=== PATIENT | female | born 2000 | race Two or more races ===

== ENCOUNTER 2023-08-19 14:15 | Inpatient (IN) | payer OTHER ==
[~2023-08-19] VITALS: Ht 177.8 cm; Wt 113.4 kg
[2023-08-23] MEDS ORDERED: AMPICILLIN SODIUM 2,000 MG VIAL ONE (10:47)
[2023-08-23] MEDS ORDERED: PRENATABS RX T1 EACH PO (10:51)
[2023-08-23] MEDS ORDERED: AMPICILLIN SODIUM 2,000 MG VIAL IV ONE (11:00)
[2023-08-23] MEDS ORDERED: RINGERS SOLUTION,LACTATED 1,000 ML IV SCH (11:00)
[2023-08-23 11:43] LABS: HEMATOCRIT 36.3 % (36.0-45.00); HEMOGLOBIN 12.4 g/dL (12.0-15.00); MEAN CELL VOLUME 85.6 fL (80.00-100.00); MEAN CORPUSCULAR HEMOGLOBIN 29.3 pg (27.00-32.0); MEAN CORPUSCULAR HGB CONC 34.2 g/dl (32.0-36.0); PLATELET COUNT 253 K/uL (150-450); RED BLOOD COUNT 4.24 M/uL (4.00-6.00); RED CELL DISTRIBUTION WIDTH 14.7 % (11.5-14.5)
[2023-08-23 11:46] LABS: PH,URINE 5.5 (5.0-8.0); URINE APPEARANCE Turbid; URINE BILIRRUBIN Negative (NEGATIVE); URINE BLOOD Large; URINE COLOR Yellow; URINE GLUCOSE Negative (NEGATIVE); URINE LEUKOCYTE Large; URINE NITRATE Negative; URINE PROTEIN 30 (NEGATIVE); URINE UROBILINOGEN 0.2 E.U./dl
[2023-08-23 12:01] LABS: URINE RBC 36.2 uL (0.0-20.8); URINE WBC 3231.2 uL (0.0-23.2)
[2023-08-23] MEDS ORDERED: ERYTHROMYCIN BASE 1 GM TUBE OP ONE ×2 (12:12→18:30)
[2023-08-23] MEDS ORDERED: CHLORHEXIDINE GLUCONATE 120 ML BOTTLE TOP ONE ×2 (12:12→18:30)
[2023-08-23] MEDS ORDERED: OXYTOCIN 20 UNITS/1000ML RL PIGGYBAG IV ONE ×2 (12:12→18:30)
[2023-08-23 12:16] LABS: FIBRINOGEN 447 mg/dL (187.0-446.0); INR < 0.93; PARTIAL THROMBOPLASTIN TIME 28.5 SECONDS (22.0-34.0); PROTHROMBIN TIME 9.3 SECONDS (9.0-11.5)
[2023-08-23 12:18] LABS: URINE BACTERIA > 9821.5 uL (0.0-1933); URINE EPITHELIAL CELLS > 201.7 uL (0.0-38.8)
[2023-08-23 12:19] LABS: URINE CRYSTALS FEW /HPF
[2023-08-23 12:20] LABS: URINE YEAST MODERATE /hpf
[2023-08-23 12:37] LABS: ALBUMIN 3.2 gm/dL (3.4-5.0); BILIRUBIN TOTAL 0.3 mg/dL (0.3-1.2); CALCIUM 9.3 mg/dL (8.5-10.1); CREATININE SERUM 0.71 mg/dL (0.55-1.02); GFR 103.91; GLOBULINA 3.5 G/DL (2.4-3.5); POTASSIUM 4.33 mEq/L (3.5-5.1); TOTAL PROTEIN 6.7 gm/dL (6.4-8.2)
[2023-08-23] MEDS ORDERED: OXYTOCIN 20 UNITS/500ML RL PIGGYBAG IV ONE (14:01)
[2023-08-23] MEDS ORDERED: OXYTOCIN 500 ML IV SCH (14:30)
[2023-08-23] MEDS ORDERED: PROMETHAZINE HCL 25 MG/ML AMPUL ONE (15:50)
[2023-08-23] MEDS ORDERED: MEPERIDINE HCL/PF 50 MG/ML VIAL IV STA (15:52)
[2023-08-23] MEDS ORDERED: PROMETHAZINE HCL 25 MG/ML AMPUL IV STA (15:52)
[2023-08-23] MEDS ORDERED: AMPICILLIN SODIUM 1,000 MG VIAL IV SCH (16:00)
[2023-08-23] MEDS ORDERED: NALOXONE HCL 0.4 MG/ML AMPUL ONE (16:51)
[2023-08-23] MEDS ORDERED: ACETAMINOPHEN 325 MG TABLET PO PRN (18:30)
[2023-08-23] MEDS ORDERED: OxyCODONE HCL/APAP UD (PERCOCET) PO PRN (18:30)
[2023-08-23 22:01] LABS: HEMATOCRIT 39.3 % (36.0-45.00); HEMOGLOBIN 13.3 g/dL (12.0-15.00); MEAN CELL VOLUME 87.3 fL (80.00-100.00); MEAN CORPUSCULAR HEMOGLOBIN 29.5 pg (27.00-32.0); MEAN CORPUSCULAR HGB CONC 33.8 g/dl (32.0-36.0); PLATELET COUNT 288 K/uL (150-450); RED BLOOD COUNT 4.49 M/uL (4.00-6.00); RED CELL DISTRIBUTION WIDTH 14.6 % (11.5-14.5)
[2023-08-24] MEDS ORDERED: HYDROCORTISONE 2.5% 30 GM TUBE RECTAL SCH (09:00)
[2023-08-24] MEDS ORDERED: BENZOCAINE/MENTHOL 90 ML BOTTLE TOP SCH (09:00)
== END 2023-08-25 13:12 | disposition home or self-care (01) | DRG 807 ==
LOC: OB/GYN 08-23 10:40 → LDR 08-23 10:40 → OB/GYN 08-23 19:39
PROVIDERS: ADMIT Specialist; ATTEND Specialist
PROC: 10E0XZZ Delivery of Products of Conception, External Approach (ICD-10-PCS; principal; 2023-08-23)
PROC: 4A1HXCZ Monitoring of Products of Conception, Cardiac Rate, External Approach (ICD-10-PCS; 2023-08-23)
DX: O99.824 Streptococcus B carrier state complicating childbirth (principal); Z37.0 Single live birth; Z3A.39 39 weeks gestation of pregnancy; Z20.822 Contact with and (suspected) exposure to COVID-19

== ENCOUNTER 2025-02-02 21:50 | Outpatient (CLI) | payer OTHER ==
[~2025-02-02] VITALS: Ht 177.8 cm; Wt 121.1 kg
[2025-02-02 21:42] VITALS: BP 101/66
[~2025-02-02 21:50] MED LIST: PRENATABS RX T1 EACH PO
[2025-02-02] MEDS ORDERED: RINGERS SOLUTION,LACTATED 1,000 ML IV SCH (22:00)
[2025-02-02 23:14] LABS: URINE APPEARANCE Cloudy; URINE BILIRRUBIN Negative (NEGATIVE); URINE BLOOD Negative; URINE COLOR Yellow; URINE KETONE Trace (NEGATIVE); URINE LEUKOCYTE Small; URINE NITRATE Negative; URINE PROTEIN Trace (NEGATIVE); URINE UROBILINOGEN 1.0 E.U./dl
[2025-02-02 23:17] VITALS: BP 105/68
[2025-02-02 23:18] LABS: BASO % 0.3 % (0.1-1.2); EOS # 0.09 (0.04-0.54); EOS % 1.4 % (0.7-7.0); LYMPH # 1.68 (1.18-3.74); LYMPH % 25.5 % (19.3-53.1); MEAN PLATELET VOLUME 11.00 fl (9.4-12.4); MONO # 0.51 (0.24-0.82); MONO % 7.7 % (4.7-12.5); NEUT # 4.27 (1.56-6.13); NEUT % 64.8 % (34.0-71.1); RED CELL DISTRIBUTION WIDTH 13.3 % (11.6-14.4); URINE BACTERIA 3066.0 uL (0.0-1933); URINE EPITHELIAL CELLS 70.4 uL (0.0-38.8); URINE RBC 23.3 uL (0.0-20.8); URINE WBC 35.3 uL (0.0-23.2)
[2025-02-02 23:38] LABS: URINE CAST 0.29 uL (0.0-1.40); URINE CRYSTALS MANY /HPF; URINE GLUCOSE 100 MG/DL (NEGATIVE)
[2025-02-03] MEDS ORDERED: INDOMETHACIN 25 MG CAPSULE PO ONE
[2025-02-03] MEDS ORDERED: FAMOTIDINE/PF 20 MG/2 ML VIAL IV ONE
[2025-02-03 04:29] VITALS: BP 104/62
[2025-02-03 07:29] VITALS: BP 100/66
[2025-02-03 11:16] VITALS: BP 105/71
[2025-02-03 15:18] VITALS: BP 103/64
[2025-02-03 17:33] VITALS: BP 110/60
== END 2025-02-03 17:34 | disposition home or self-care (01) ==
LOC: OBS/DEL 21:50
PROVIDERS: Obstetrics & Gynecology; ATTEND Specialist
DX: O26.893 Other specified pregnancy related conditions, third trimester (principal); R10.2 Pelvic and perineal pain; M54.9 Dorsalgia, unspecified; Z3A.33 33 weeks gestation of pregnancy

== ENCOUNTER 2025-03-12 13:15 | Inpatient (IN) | payer OTHER ==
[~2025-03-12] VITALS: Ht 177.8 cm; Wt 118.8 kg
[2025-03-20 06:28] VITALS: BP 125/77
[2025-03-20] MEDS ORDERED: OXYTOCIN 500 ML IV SCH (06:45)
[2025-03-20] MEDS ORDERED: RINGERS SOLUTION,LACTATED 1,000 ML IV SCH (06:45)
[2025-03-20 07:42] VITALS: BP 127/78; BP 132/84
[2025-03-20 07:48] LABS: BASO % 0.2 % (0.1-1.2); EOS # 0.05 (0.04-0.54); EOS % 0.8 % (0.7-7.0); LYMPH # 1.75 (1.18-3.74); LYMPH % 27.6 % (19.3-53.1); MEAN PLATELET VOLUME 11.30 fl (9.4-12.4); MONO # 0.50 (0.24-0.82); MONO % 7.9 % (4.7-12.5); NEUT # 4.00 (1.56-6.13); NEUT % 63.2 % (34.0-71.1); RED CELL DISTRIBUTION WIDTH 14.1 % (11.6-14.4)
[2025-03-20 08:20] LABS: URINE APPEARANCE Clear; URINE BILIRRUBIN Negative (NEGATIVE); URINE BLOOD Negative; URINE COLOR Yellow; URINE GLUCOSE Negative (NEGATIVE); URINE KETONE 15 (NEGATIVE); URINE LEUKOCYTE Trace; URINE NITRATE Negative; URINE PROTEIN Negative (NEGATIVE); URINE UROBILINOGEN 0.2 E.U./dl
[2025-03-20 08:24] LABS: URINE BACTERIA 1753.2 uL (0.0-1933); URINE EPITHELIAL CELLS 67.5 uL (0.0-38.8); URINE RBC 5.5 uL (0.0-20.8); URINE WBC 48.1 uL (0.0-23.2)
[2025-03-20 08:44] LABS: INR < 0.93
[2025-03-20 08:58] LABS: ALT/SGPT 18.0 U/L (12-78); AST/SGOT 21.0 U/L (15-37); BILIRUBIN TOTAL 0.56 mg/dL (0.3-1.2); BUN CREA RATIO 14.0 (7.0-25.0); CREATININE SERUM 0.64 mg/dL (0.55-1.02); GFR 114.99; GLOBULINA 3.5 G/DL (2.4-3.5); GLUCOSE FASTING 88.0 mg/dL (65-100); OSMOLALITY SERUM 274.0 MOSM/KG (275-295)
[2025-03-20 09:00] LABS: URINE CAST 0.29 uL (0.0-1.40)
[2025-03-20] MEDS ORDERED: CHLORHEXIDINE GLUCONATE 120 ML BOTTLE TOP ONE ×2 (10:26→11:45)
[2025-03-20] MEDS ORDERED: OXYTOCIN 20 UNITS/1000ML RL PIGGYBAG IV ONE (10:26)
[2025-03-20] MEDS ORDERED: ERYTHROMYCIN BASE OPHT 1GM EACH TUBE OP ONE ×2 (10:26→11:45)
[2025-03-20] MEDS ORDERED: LIDOCAINE HCL 1% 10ML VIAL ONE (10:27)
[2025-03-20] MEDS ORDERED: ACETAMINOPHEN 500 MG GEL..CAP PO PRN (11:45)
[2025-03-20] MEDS ORDERED: OXYTOCIN 1,000 ML IV SCH (11:45)
[2025-03-20] MEDS ORDERED: HYDROCORTISONE 2.5% 30 GM TUBE RECTAL SCH (13:00)
[2025-03-20] MEDS ORDERED: BENZOCAINE/MENTHOL 90 ML BOTTLE TOP SCH (13:00)
[2025-03-20 14:17] VITALS: BP 140/84
[2025-03-20 15:45] VITALS: BP 119/81
[2025-03-21 00:32] LABS: BASO % 0.2 % (0.1-1.2); EOS # 0.08 (0.04-0.54); EOS % 0.9 % (0.7-7.0); LYMPH # 1.98 (1.18-3.74); LYMPH % 21.8 % (19.3-53.1); MEAN PLATELET VOLUME 11.00 fl (9.4-12.4); MONO # 0.81 (0.24-0.82); MONO % 8.9 % (4.7-12.5); NEUT # 6.17 (1.56-6.13); NEUT % 68.0 % (34.0-71.1); RED CELL DISTRIBUTION WIDTH 13.9 % (11.6-14.4)
[2025-03-21 00:57] VITALS: BP 123/76; BP 124/78
[2025-03-21 08:48] VITALS: BP 121/83
[2025-03-21 17:36] VITALS: BP 130/80
[2025-03-22 00:39] VITALS: BP 100/65
[2025-03-22 08:00] VITALS: BP 132/87
== END 2025-03-22 12:50 | disposition home or self-care (01) | DRG 807 ==
LOC: OB/GYN 03-18 13:15 → LDR 03-20 05:57 → OB/GYN 03-20 11:43
PROVIDERS: ADMIT Specialist; ATTEND Specialist
PROC: 10E0XZZ Delivery of Products of Conception, External Approach (ICD-10-PCS; principal; 2025-03-20)
PROC: 3E033VJ Introduction of Other Hormone into Peripheral Vein, Percutaneous Approach (ICD-10-PCS; 2025-03-20)
PROC: 4A1HXCZ Monitoring of Products of Conception, Cardiac Rate, External Approach (ICD-10-PCS; 2025-03-20)
DX: O80 Encounter for full-term uncomplicated delivery (principal); Z37.0 Single live birth; Z3A.40 40 weeks gestation of pregnancy